=== PATIENT | female | born 1930 | race African-American/Black ===

== ENCOUNTER 2016-06-23 11:06 | Emergency (ER) | payer MEDICARE, OTHER ==
[~2016-06-23] VITALS: Ht 147.3 cm; Wt 45.4 kg
[2016-06-23 11:28] VITALS: BP 134/62
[2016-06-23] MEDS ORDERED: AMLODIPINE BESY10 MG ORAL (11:31)
[2016-06-23] MEDS ORDERED: DIOVAN320 MG ORAL (11:31)
[2016-06-23] MEDS ORDERED: ATORVASTATIN CA20 MG ORAL (11:31)
[2016-06-23] MEDS ORDERED: FUROSEMIDE40 MG ORAL (11:31)
[2016-06-23] MEDS ORDERED: HYDRALAZINE HCL25 M1 ORAL (11:31)
[2016-06-23] MEDS ORDERED: Acetaminophen 500mg (ES) tab PO ONE (11:45)
[2016-06-23] MEDS ORDERED: TYLENOL325 MG ORAL (13:53)
[2016-06-23 14:10] VITALS: BP 110/64
[2016-06-23 14:11] VITALS: BP 110/64
--- NOTE | 2016-06-23 14:14 | Diagnostic Imaging Report ---
Indication: Chest pain. Comparison: None Findings: 4 views of the left chest wall was obtained for evaluation of the ribs. Bony mineralization appears diminished. There is no acute fracture identified. There is no soft tissue swelling demonstrated. The lung is essentially clear. The costophrenic angle is sharp. Other osseous structures visualized are unremarkable. Impression: No acute fracture
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
--- NOTE | 2016-06-26 08:29 | Diagnostic Imaging Report ---
Indication: pain Findings: 3 views of the left hand were obtained. Bones are osteopenic. No fracture is identified. Scapholunate dissociation is noted with a widened gap as well as a dorsal tilt. There is narrowing of the radioscaphoid joint and the first metacarpal carpal joint. Impression: Scapholunate dissociation and dorsal tilt. Osteoarthritis
== END 2016-06-23 14:11 | disposition home or self-care (01) ==
LOC: EMR 13:09
DX: S60.222A Contusion of left hand, initial encounter (principal); S20.219A Contusion of unspecified front wall of thorax, initial encounter; I10 Essential (primary) hypertension; V49.9XXA Car occupant (driver) (passenger) injured in unspecified traffic accident, initial encounter; Y92.410 Unspecified street and highway as the place of occurrence of the external cause; Y99.8 Other external cause status
CPT/HCPCS: 99284